=== PATIENT | female | born 1985 | race Asian ===

== ENCOUNTER 2024-03-04 02:07 | Inpatient (IN) ==
[2024-03-04] MEDS: Buffered Lidocaine 1% SYRIN 1 ml INTRADERM ONE (05:40)
[2024-03-04] MEDS: Lactated Ringers 1000 ml BAG 1,000 ML IV ONE ×2 (05:40→08:58)
[2024-03-04 05:58] LABS: ABS Basophils 0.1 10^3/uL (0.0-0.1); ABS Eosinophils 0.1 10^3/uL (0.0-0.5); ABS Lymphocytes 1.7 10^3/uL (1.0-4.8); ABS Monocytes 0.5 10^3/uL (0.0-0.9); ABS Neutrophils 10.9 10^3/uL (1.5-7.6); ABS Nucleated RBC 0.01 10^3/ul; Eosinophil % 0.4 %; Hematocrit 37.3 % (35-45); Hemoglobin 12.9 g/dL (11.5-14.3); Lymphocyte % 12.8 %; Mean Corpuscular Hemoglobin 31.6 pg (27-33); Mean Corpuscular Hgb Conc 34.6 g/dL (31-36); Mean Corpuscular Volume 91.2 fL (80-97); Mean Platelet Volume 9.7 fL (7.5-11.2); Nucleated Red Blood Cells % 0.1 %/100WBC (0.0-0.8); Platelet Count 193 10^3/uL (150-450); Red Blood Count 4.09 10^6/uL (3.63-4.92); Red Cell Distribution Width 13.2 % (12-17); White Blood Count 13.3 10^3/uL (3.8-11.8)
[2024-03-04] MEDS: Lactated Ringers 1000 ml BAG 1,000 ML IV SCH ×2 (07:05→14:39)
[2024-03-04] MEDS ORDERED: Sodium Citrate/Citric Acid LIQ 15 ML UDC PO PRN (08:14)
[2024-03-04] MEDS ORDERED: Phenylephrine 40 mcg/mL 10mL (400mcg) SYRINGE IV PUSH PRN ×2 (08:14)
[2024-03-04] MEDS: OBEPIDURAL (200 ML) 200 ML EPIDURAL ONE (08:30)
[2024-03-04 08:54] LABS: Urine Appearance Clear; Urine Bilirubin Negative (Negative); Urine Blood 3+ (Negative); Urine Color Yellow; Urine Glucose Negative (Negative); Urine Ketones 4+ (Negative); Urine Nitrite Negative (Negative); Urine Protein 1+ (>=30 mg/dL) (Negative); Urine Urobilinogen Negative (Negative); Urine pH 6.5 (5.0-8.0)
[2024-03-04] MEDS ORDERED: OBEPIDURAL (200 ML) 200 ML EPIDURAL SCH (09:00)
[2024-03-04 09:01] LABS: Urine Bacteria 1+ /HPF (Absent); Urine Red Blood Cell 3+(>10/hpf) /HPF (0-Trace); Urine Squamous Epithelial Cell Present /HPF (Absent); Urine White Blood Cell Trace(0-5/hpf) /HPF (0-Trace)
[2024-03-04 09:03] LABS: Urine Benzodiazepine Screen None Detected (None Detect); Urine Cannabinoids Screen None Detected (None Detect); Urine Opiates Screen None Detected (None Detect)
[2024-03-04] MEDS: Acetaminophen IV 1 GM/100ML 1,000 MG/100 ML BAG IV ONE (14:42)
[2024-03-04] MEDS: Ampicillin ADVAN 2 GM in NS 0.9% 100 ml BAG 100 ML IVPB SCH (14:55)
[2024-03-04] MEDS: Gentamicin ADULT 330 MG in NS 0.9% 100 ml BAG 100 ML IVPB SCH (15:36)
[2024-03-04] MEDS: Oxytocin in LR 20,000 MILLI.UNIT/1,000 ML BAG IV SCH ×2 (16:05→19:24)
[2024-03-04] MEDS: Lidocaine 1% VIAL 10 MG/ML 30 ML VIAL INJ PRN (19:30)
[2024-03-04] MEDS: Lidocaine 1.5% EPI 1:200,000 30 ML SDV ONE (19:31)
[2024-03-04] MEDS ORDERED: Glycerin ADULT 2.4 gm SUPP PR PRN (19:59)
[2024-03-04] MEDS ORDERED: Lactated Ringers 1000 ml BAG 1,000 ML IV SCH (20:00)
[2024-03-04] MEDS: Witch Hazel PAD JAR TOPICAL PRN (21:14)
[2024-03-04] MEDS: Dibucaine 1% OINT 28.35 GM TUBE PR PRN (21:14)
[2024-03-05] MEDS: Oxytocin in LR 20,000 MILLI.UNIT/1,000 ML BAG IV SCH (01:17)
[2024-03-05 06:49] LABS: ABS Basophils 0.1 10^3/uL (0.0-0.1); ABS Eosinophils 0.1 10^3/uL (0.0-0.5); ABS Lymphocytes 2.1 10^3/uL (1.0-4.8); ABS Monocytes 0.6 10^3/uL (0.0-0.9); ABS Neutrophils 10.8 10^3/uL (1.5-7.6); Eosinophil % 0.6 %; Hematocrit 29.8 % (35-45); Hemoglobin 10.2 g/dL (11.5-14.3); Lymphocyte % 15.3 %; Mean Corpuscular Hemoglobin 31.8 pg (27-33); Mean Corpuscular Hgb Conc 34.3 g/dL (31-36); Mean Corpuscular Volume 92.6 fL (80-97); Mean Platelet Volume 9.5 fL (7.5-11.2); Platelet Count 158 10^3/uL (150-450); Red Blood Count 3.22 10^6/uL (3.63-4.92); Red Cell Distribution Width 13.9 % (12-17); White Blood Count 13.7 10^3/uL (3.8-11.8)
[2024-03-06 07:54] VITALS: BP 111/61
== END 2024-03-06 18:10 | disposition home or self-care (01) | DRG 807 ==
LOC: MCHOBOUT 02:07 → MCHOB 04:47
PROVIDERS: ADMIT Midwife; ATTEND Advanced Practice Midwife